=== PATIENT | male | born 1965 ===

== ENCOUNTER 2020-02-09 11:01 | Outpatient (CLI) | payer BC, OTHER ==
[2020-02-10 13:49] LABS: SARS-CoV-2 MS2 Positive; SARS-CoV-2 N Gene Negative; SARS-CoV-2 S Gene Negative; SARS-CoV-2 orf1ab Negative
== END 2020-02-09 11:02 | disposition home or self-care (01) ==
LOC: SCSRAD 11:01 → SCSLAB 11:02
PROVIDERS: ATTEND Internal Medicine Critical Care Medicine
DX: Z01.812 Encounter for preprocedural laboratory examination (principal); Z11.59 Encounter for screening for other viral diseases
CPT/HCPCS: 87635; U0003